=== PATIENT | female | born 1950 | race Caucasian/White ===

== ENCOUNTER → 2017-10-05 | Outpatient (CLI) | payer MEDICARE, MEDICAID ==
[~2017-10-05] MED LIST: ALPRAZOLAM0.25 M2 PO; CEFUROXIME AXE500 MG PO; CIPRO 500MG TA500 MG PO; GABAPENTIN300 MG PO; LEVOTHYROXIN0.075 M1 PO; LISINOPRIL 10MG10 MG PO; PROTONIX 40MG T40 MG PO; PYRIDIUM200 M2 PO; SYMBICORT1 AE1 IH; VENTOLIN H0.09 MG/Ac IH
--- NOTE | 2017-10-05 10:14 | RADIOLOGY REPORT PS360 ---
US RUQ-(ABD LTD)1ORGAN/QUAD/FU HISTORY: RUQ PAIN, NAUSEA ORDERING PHYSICIAN: Margoth White MD PATIENT AGE: 67 years COMPARISON: None FINDINGS: PANCREAS:Unremarkable. No obvious mass or abnormal fluid collection. No ductal dilatation LIVER:No focal liver lesions demonstrated. Homogeneous echogenicity. No intrahepatic biliary ductal dilatation evident RIGHT KIDNEY:1 cm cyst in the upper pole. No hydronephrosis GALLBLADDER:Gallbladder sludge is present. No stones, wall thickening, or pericholecystic fluid. No bili dilatation. Common bile duct is 3 mm. IMPRESSION: 1. Gallbladder sludge. No stones 2. Small right renal cyst
== END ==
LOC: RAD 07:50
DX: R10.11 Right upper quadrant pain (principal); K76.89 Other specified diseases of liver